=== PATIENT | female | born 2000 | race Caucasian/White ===

== ENCOUNTER 2022-10-10 08:02 | Outpatient (CLI) | payer OTHER, SELFPAY ==
--- NOTE | ~2022-10-10 | US_ITS ---
US right upper quadrant DATE: 10/10/2022 10:48 INDICATION: Epigastric abdominal pain for 2 months. TECHNIQUE: Real-time imaging and Doppler analysis of liver, pancreas, gallbladder COMPARISON: None FINDINGS: No hepatic or pancreatic space-occupying mass lesion. Normal hepatopedal portal venous flow direction. Small 3 mm gallbladder polyp is demonstrated. Mild sludge in the dependent aspect of the gallbladder. No gallbladder wall thickening or pericholecystic fluid. Negative sonographic Hernandez's sign. The common bile duct measures 2.5 mm, normal. IMPRESSION: Small gallbladder polyp and small amount of sludge in the gallbladder; negative sonograph ic Hernandez's sign Reviewed, dictated and finalized at [facility]. Reviewed, dictated and finalized at [facility]. [facility] [employer] IMPRESSION: Small gallbladder polyp and small amount of sludge in the gallbladd er; negative sonographic Hernandez's sign
== END 2022-10-10 08:03 | disposition home or self-care (01) ==
PROVIDERS: PCP Family Medicine; Visit Provider Family Medicine
DX: R10.13 Epigastric pain (principal); R85.0 Abnormal level of enzymes in specimens from digestive organs and abdominal cavity; K82.4 Cholesterolosis of gallbladder
CPT/HCPCS: 76705

== ENCOUNTER 2023-05-10 16:45 | Outpatient (CLI) | payer OTHER, SELFPAY ==
--- NOTE | ~2023-05-10 | US_ITS ---
US right upper quadrant INDICATION: Right upper quadrant pain PROCEDURE: Realtime right upper abdominal ultrasound. COMPARISON: 10/10/2022 FINDINGS: The pancreas is normal without focal mass or pancreatic ductal dilation. Liver echotexture is normal without focal mass or intrahepatic biliary dilatation. There is normal directional flow i n the portal vein. There is a 3 mm gallbladder polyp. No stones, gallbladder wall thickening or pericholecystic fluid. Common bile duct measures 3 mm. No sonographic Hernandez's sign. IMPRESSION: 1: Gallbladder polyp measuring 3 mm. Reviewed, dictated and finalized at [facility].
== END 2023-05-10 16:46 | disposition home or self-care (01) ==
LOC: ANHIMG 16:49
PROVIDERS: PCP Family Medicine
DX: R10.11 Right upper quadrant pain (principal); K82.4 Cholesterolosis of gallbladder
CPT/HCPCS: 76705

== ENCOUNTER 2023-08-29 17:38 | Emergency (ER) | payer OTHER, SELFPAY ==
--- NOTE | ~2023-08-29 | CT_ITS ---
EXAMINATION: CT abdomen pelvis w con DATE: 08/29/2023 19:15 INDICATION: Epigastric abdominal pain. TECHNIQUE: Computed tomography (CT) of the abdomen and pelvis was performed with 100 mL Omnipaque 350 intravenous contrast. Automated exposure control and iterative reconstruction technique were employe d. The dose-length product was 883.73 mGy-cm. COMPARISON: Abdomen ultrasound 05/10/2023 FINDINGS: The visualized portions of the lung bases are clear without pneumonia or pleural effusion. The heart size is normal. No pericardial effusion. The liver, gallbladder, spleen, pancreas, adrenal glands, and kidneys are normal. There are no dilated loops of bowel. The appendix is normal. There ar e no pathologically enlarged lymph nodes. There is no free intraperitoneal fluid. There is mild lumba r spondylosis. IMPRESSION: 1. No etiology for the patient's symptoms. Reviewed, dictated and finalized at [facility].
[2023-08-29 17:41] VITALS: BP 149/85; PULSE 73; RESP 15; TEMP 36.6; O2SAT 100
[2023-08-29 18:07] LABS: Basophils Absolute Auto 0.1 K/mm3 (0.0-0.1); Basophils Percent Auto 0.7 % (0.2-1.2); Eosinophils Absolute Auto 0.1 K/mm3 (0-0.3); Eosinophils Percent Auto 1.4 % (0-4.4); Hematocrit 39.8 % (37.0-47.0); Immature Granulocyte Absolute 0.02 K/mm3 (0.00-0.031); Immature Granulocyte Percent A 0.2 % (0-0.5); Lymphocytes Absolute Auto 3.07 K/mm3 (0.9-3.2); Lymphocytes Percent Auto 36.9 % (18.3-44.2); Mean Corpuscular HGB Conc 32.7 g/dl (32-36); Mean Corpuscular Hemoglobin 27.4 pg (26-34); Mean Corpuscular Volume 83.8 fl (80-100); Mean Platelet Volume 10.3 fl (7.4-10.4); Monocytes Absolute Auto 0.6 K/mm3 (0.1-0.6); Neutrophils Absolute Auto 4.5 K/mm3 (1.3-6.7); Neutrophils Percent Auto 53.8 % (45.5-73.1); Platelet Count Result 298 k/mm3 (150-375); Red Blood Count 4.75 M/mm3 (4.2-5.4); Red Cell Distribution Width 13.6 % (11.5-14.5); White Blood Count 8.3 K/mm3 (4.5-10.0)
[2023-08-29 18:17] LABS: Alanine Aminotransferase 18 U/L (6-35); Albumin Level 4.6 g/dL (3.5-5.1); Alkaline Phosphatase 92 U/L (38-126); Anion Gap 8 mmol/L (8-16); Aspartate Amino Transferase 29 U/L (14-36); Bilirubin,Total 0.4 mg/dL (0.2-1.3); Blood Urea Nitrogen 17 mg/dL (7-17); Calcium 8.7 mg/dL (8.4-10.2); Carbon Dioxide 24 mmol/L (22-30); Chloride 105 mmol/L (98-107); Estimated CRCL calculation 114 ml/min; Estimated Glomerular Filt Rate > 60; Glucose 95 mg/dL (65-110); Lipase 247 U/L (23-300); Potassium 3.6 mmol/L (3.4-5.0); Sodium 137 mmol/L (137-145)
[2023-08-29 18:18] LABS: Lactic Acid Reflex 0.9 mmol/L (0.7-2.0)
[2023-08-29 18:26] LABS: Appearance Urine Clear (Clear); Bilirubin Urine Negative (Negative); Blood Urine Negative (Negative); Color Urine Yellow (Yellow); Glucose Urine UA Negative (Negative); Ketones Urine Negative (Negative); Leukocyte Esterase Ur Negative LEU/UL (Negative); Nitrate Urine Negative (Negative); Protein Urine Negative (Negative); Urobilinogen Urine 0.2 mg/dL (<2.0)
[2023-08-29 18:29] LABS: Add Urine Microscopic? NO; Specific Grav Ur 1.043 (1.001-1.035)
--- NOTE | 2023-08-29 18:54 | ED.ABDPAIN ---
HPI - Abdominal Pain General Chief Complaint: Abdominal Pain Stated Complaint: abd pain Time Seen by Provider: 08/29/23 18:07 Source: patient Mode of arrival: ambulatory Limitations: no limitations History of Present Illness HPI narrative: This is a 22-year-old female that presents to the emergency department for epigastric pain ongoing over the last 3 days. Reports the pain is dull and sometimes burning. Today it has been somewhat intermittent. Reports history of a gallbladder polyp which she has surveillanced with imaging. She took [id number] medications with little relief. Reports nausea. Denies fevers, vomiting or diarrhea. Related Data Home Medications Medication Instructions Recorded Confirmed No Home Medications 08/29/23 08/29/23 Allergies Allergy/AdvReac Type Severity Reaction Status Date / Time No Known Allergies Allergy Verified 08/29/23 18:18 Review of Systems Review of Systems: CONSTITUTIONAL: Denies fever GASTROINTESTINAL: Reports abdominal pain, nausea. Denies vomiting, or diarrhea. All systems reviewed & are unremarkable except as noted in HPI and below PMFSH Past Medical History Medical History (Updated 08/29/23 @ 20:25 by Emi Raphael PA-C) No active medical problems Social History Social History (Updated 08/29/23 @ 18:57 by Emi Raphael PA-C) Substance use: never Exam Narrative: GENERAL: Well-appearing, well-nourished, and in no acute distress. HEAD: Normocephalic, atraumatic. EYES: EOMI. CHEST: Clear to auscultation. No respiratory distress. No wheezes rales or rhonchi HEART: Regular rate and rhythm. No murmur heard. Normal peripheral pulses. ABDOMEN: Soft, nontender, nondistended, normal active bowel sounds. EXTREMITIES: Normal range of motion. No edema. SKIN: Warm, dry, no rash. NEURO: No focal deficits. Alert and oriented x3. PSYCH: Normal mood and affect Course Course Emergency Course: Patient and family updated on workup and agree with plan of care Vital Signs Vital signs: Vital Signs Temperature 97.8 F 08/29/23 17:41 Pulse Rate 73 08/29/23 17:41 Respiratory Rate 15 08/29/23 17:41 Blood Pressure 149/85 H 08/29/23 17:41 Pulse Oximetry 100 08/29/23 17:41 Oxygen Delivery Room Air 08/29/23 17:41 Temperature 97.8 F 08/29/23 17:41 Pulse Rate 79 08/29/23 19:26 Respiratory Rate 18 08/29/23 19:26 Blood Pressure 128/87 08/29/23 19:26 Pulse Oximetry 100 08/29/23 19:26 Oxygen Delivery Room Air 08/29/23 17:41 MDM - Abdominal Pain MDM Narrative Medical decision making narrative: Patient presents to the emergency department for epigastric pain ongoing over the last couple of days. She is afebrile and nontoxic-appearing. Her vitals are stable. CBC without leukocytosis. Metabolic panel and lipase without concerning findings. UA without evidence of infection. Bedside test is negative. CT scan of the abdomen and pelvis is without concerning findings. Patient and family updated on work-up. Instructed to trial Pepcid to see if this helps. Patient in agreement with plan. She is to follow-up with primary provider. She was given warnings to return to the ER Differential Diagnosis Differential diagnosis: Likely abdominal pain, gastroenteritis, pancreatitis and other (biliary colic) Lab Data Attestation: I reviewed the patient's lab results. 08/29/23 18:00 08/29/23 18:00 Labs: Lab Results 08/29/23 08/29/23 Range/Units 18:00 18:15 WBC 8.3 (4.5-10.0) K/mm3 RBC 4.75 (4.2-5.4) M/mm3 Hgb 13.0 (12.0-15.0) g/dL Hct 39.8 (37.0-47.0) % MCV 83.8 (80-100) fl MCH 27.4 (26-34) pg MCHC 32.7 (32-36) g/dl RDW 13.6 (11.5-14.5) % Plt Count 298 (150-375) k/mm3 MPV 10.3 (7.4-10.4) fl Immature Gran % (Auto) 0.2 (0-0.5) % Neut % (Auto) 53.8 (45.5-73.1) % Lymph % (Auto) 36.9 (18.3-44.2) % Sunflower % (Auto) 7.0 (2.6-8.5) %
[2023-08-29] MEDS: SODIUM CHLORIDE 0.9% IV 500 ML 999 ML IV CONT (19:03)
[2023-08-29] MEDS: PANTOPRAZOLE SODIUM IV 40 MG VIAL IV PUSH (19:04)
[2023-08-29 19:26] VITALS: BP 128/87; PULSE 79; RESP 18; O2SAT 100
[2023-08-29 20:37] VITALS: BP 115/79; PULSE 67; O2SAT 100
== END 2023-08-29 20:35 | disposition home or self-care (01) ==
PROVIDERS: Emergency Medicine; Emergency Provider Physician Assistant; PCP Family Medicine
DX: R10.13 Epigastric pain (principal)
CPT/HCPCS: 36415; 74177; 80053; 81003; 81025; 83605; 83690; 85025; 96361; 96374; 99284; C9113; J7040; Q9967

== ENCOUNTER 2025-01-03 07:20 | Outpatient (CLI) | payer OTHER, SELFPAY ==
--- NOTE | ~2025-01-03 | US_ITS ---
EXAMINATION: US right upper quadrant DATE: 01/03/2025 08:20 INDICATION: Gallbladder polyp TECHNIQUE: Multiple grayscale and Doppler ultrasound images of the abdomen were obtained. COMPARISON: 08/29/2023 and 05/10/2023 FINDINGS: The pancreatic head and body are normal in appearance. The pancreatic tail is not visualized. The vi sualized proximal to mid inferior vena cava is normal. Liver has normal echogenicity and contour, wit h a smooth surface. No liver lesion identified. No intrahepatic biliary duct dilation suspected. Port al venous flow was seen in the hepatopetal, normal direction and has normal Doppler waveform. There i s a 3 mm echogenic focus along the posterior wall of the gallbladder however this now appears located closer to the neck rather than in the midportion of the gallbladder as on the prior study which favo rs a multiple all of sludge as opposed to a fixed gallbladder polyp. The gallbladder is otherwise nor mal in appearance. There is no shadowing cholelithiasis. The common bile duct measures 3-4 Sonograph ic Hernandez sign was reported as negative by the red hat engineer. mm, which is normal. /Portion of the righ t kidney demonstrates normal contour and echogenicity with no hydronephrosis. IMPRESSION: 1. 3 mm echogenic focus in the gallbladder which appears to have changed in position since the prior study which would favor a mobile ball of sludge over a fixed polyp. Reviewed, dictated and finalized at location B. THETIC ASSISTANT IMPRESSION: 1. 3 mm echogenic focus in the gallbladder which appears to have changed in pos ition since the prior study which would favor a mobile ball of sludge over a fi xed polyp.
--- OUTSIDE RECORDS SUMMARY | 2025-01-03 07:25 | XMS_ITS | Data Portability ---
Author Organization Jamey BUNN Address [address] [facility] [place] [address] Assessment Encounter Date Assessment Date Assessment LastModified by Organization Details LastModified Time 11/03/2021 11/03/2021 considering covid vaccine--advis ed to get PFIZER in Dec ( 3 months post covid) Not available 11/03/2021 15:04:55 12/02/2022 12/02/2022 asked for surgeon's note from last week-- med records to get for my review Not available 12/02/2022 13:19:15 Plan of Treatment Reminders Order Date Submit Date Provider Last Modified By Organization Details Last Modified Time Details Appointments None recorded. Lab celiac disease comprehens beronica panel, serum 2021 [facility], [address] [place] [address], [address], [place], [address], 16:12:31 CBC w/ auto diff 2021 [facility], [address] [place] [address], [address], [place], [address], 16:12:32 CMP, serum or plasma 2021 [facility], [address] [place] [address], [address], [place], [address], 16:12:32 amylase + lipase, serum 2021 [facility], [address] [facility] [address], [address], [place], [address], 2 16:12:33 amylase + lipase, serum 2022 023 [facility], [address] [facility] [address], [address], [place], [address], 3 08:19:19 H pylori urea breath test, co2 infrared 2022 023 [facility], [address] [facility] [address], [address], [place], [address], 3 14:58:09 influenza virus A + B + SARS-CoV-2 (COVID19) Ag panel, rapid IA, upper respirator y specimen 2023 024 In-Office Order, Internal Use Only DO Not Attach Compendium DO Not Attach Compendium, Do Not Delete/merge, [id number] 14:43:29 Referral dermatolog ist referral - Please contact patient to schedule an appointmen t, Thank you. 2021 022 [email or web address] Simental MD, [address] [facility] [address] , [place], [address], 3 15:08:06 Procedures None recorded. Surgeries None recorded. Imaging XR, ribs, unilateral [address] [facility], [address] [facility] [address], [place], [address], 1 15:02:33 XR, chest, 2 view [address] [facility], [address], [place], [address], 1 15:02:33 XR, cervical spine, 2 or 3 view [address] (Imaging), [address] [facility] [address], [place], [address], 1 15:02:33 Medication Orders Arnuity Ellipta 100 mcg/actuat ion powder for inhalation 2020 021 [facility] [place], [address], 3 14:18:19 omeprazole 40 mg capsule,de layed release 2021 022 [facility] [address], [address] [place], [address], 3 12:24:53 Arnuity Ellipta 100 mcg/actuat ion powder for inhalation 2021 023 [facility] [address] [place], [address], 3 14:22:25 amoxicilli n 875 mg-potassi um clavulanat e 125 mg tablet [address] [facility], [address] [facility] [address], [place], [address], 4 19:32:15 Patient TargetsNo targets recorded. 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 -Monitor your symptoms and seek medical attention for trouble breathing, persistent chest pain, confusion, or bluish lips or face. 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 Referring Physician: Sindi Leonard, Family Medicine, Encounter Date: 09/13/2022 Results Created Date Observation Date Name Description Value Unit Range Abnormal Flag Note LastModifiedBy Organization Detail LastModifiedTime 10/04/20 22 10/05/2022 MELI C DISEA SE PANEL endomysial antibody IgA NEGATI VE negati ve Not Available [facility] [address] [facility], [place], [address], 10/05/2022 16:12:31 10/04/20 22 10/05/2022 MELI C DISEA SE PANEL T-transgluta minase (ttg) IgA <2 U/mL 0-3 Negat beronica 0 - 3 Weak Posit beronica 4 - 10 Posit beronica >10 Tissu e Trans gluta marin e (tTG) has been ident ified as the endom ysial antig en. Studi es have demon str- ated that endom ysial IgA antib odies have over 99% speci ficit y for glute n sensi tive enter opath y. Not Available [facility] ([facility]) [address] [place], [address], 10/05/2022 16:12:31 10/04/20 22 10/05/2022 MELI C DISEA SE PANEL immunoglobul in A, qn, serum 216 mg/dL 87-352 Not Available [facility] [address] [place], [address], 10/05/2022 16:12:31 10/04/20 22 10/05/2022 COMP. METAB OLIC PANEL (14) glucose 108 mg/dL 70-99 above high normal Not Available [facility]) [address] [place], [address], 10/05/2022 16:12:32 10/04/20 22 10/05/2022 COMP. METAB OLIC PANEL (14) BUN 12 mg/dL 6-20 Not Available [facility] [address] [place], [address], 10/05/2022 16:12:32 10/04/20 22 10/05/2022 COMP. METAB OLIC PANEL (14) creatinine 0.84 mg/dL 0.57-1 .00 Not Available [facility]) [address] [facility] [place], [address], 10/05/2022 16:12:32 10/04/20 22 10/05/2022 COMP. METAB OLIC PANEL (14) eGFR 101 mL/mi n/1.7 3 >59 Not Available [facility] [address] [place], [address], 10/05/2022 16:12:32 10/04/20 22 10/05/2022 COMP. METAB OLIC PANEL (14) BUN/creatini ne ratio 14 9-23 Not Available [facility] [address] [place], [address], 10/05/2022 16:12:32 10/04/20 22 10/05/2022 COMP. METAB OLIC PANEL (14) sodium 140 mmol/ L 134-14 4 Not Available [facility] [address] [place], [address], 10/05/2022 16:12:32 10/04/20 22 10/05/2022 COMP. METAB OLIC PANEL (14) potassium 4.6 mmol/ L 3.5-5. 2 Not Available [facility] [address] [place], [address], 10/05/2022 16:12:32 10/04/20 22 10/05/2022 COMP. METAB OLIC PANEL (14) chloride 102 mmol/ L 96-106 Not Available [facility] [address] [facility] [place], [address], 10/05/2022 16:12:32 10/04/20 22 10/05/2022 COMP. METAB OLIC PANEL (14) carbon dioxide, total 22 mmol/ L 20-29 Not Available [facility] [address] [facility], [place], [address], 10/05/2022 16:12:32 10/04/20 22 10/05/2022 COMP. METAB OLIC PANEL (14) calcium 9.4 mg/dL 8.7-10 .2 Not Available [facility] [address] [facility], [place], [address], 10/05/2022 16:12:32 10/04/20 22 10/05/2022 COMP. METAB OLIC PANEL (14) protein, total 7.7 g/dL 6.0-8. 5 Not Available [facility] [address] [facility] [place], [address], 10/05/2022 16:12:32 10/04/20 22 10/05/2022 COMP. METAB OLIC PANEL (14) albumin 5.0 g/dL 3.9-5. 0 Not Available [facility] [address] [facility] [place], [address], 10/05/2022 16:12:32 10/04/20 22 10/05/2022 COMP. METAB OLIC PANEL (14) globulin, total 2.7 g/dL 1.5-4. 5 Not Available [facility] [address] [facility] [place], [address], 10/05/2022 16:12:32 10/04/20 22 10/05/2022 COMP. METAB OLIC PANEL (14) A/G ratio 1.9 1.2-2. 2 Not Available [facility]) [address] [facility], [place], [address], 10/05/2022 16:12:32 10/04/20 22 10/05/2022 COMP. METAB OLIC PANEL (14) bilirubin, total <0.2 mg/dL 0.0-1. 2 Not Available [facility]) [address] [facility], [place], [address], 10/05/2022 16:12:32 10/04/20 22 10/05/2022 COMP. METAB OLIC PANEL (14) alkaline phosphatase 87 IU/L 44-121 Not Available [facility] [address] [facility], [place], [address], 10/05/2022 16:12:32 10/04/20 22 10/05/2022 COMP. METAB OLIC PANEL (14) AST (SGOT) 18 IU/L 0-40 Not Available [facility]) [address] [facility], [place], [address], 10/05/2022 16:12:32 10/04/20 22 10/05/2022 COMP. METAB OLIC PANEL (14) ALT (SGPT) 18 IU/L 0-32 Not Available [facility] [address] [facility], [place], [address], 10/05/2022 16:12:32 10/04/20 22 10/05/2022 CBC WITH DIFFE RENTI AL/PL ATELE T WBC 6.3 x10e3 /uL 3.4-10 .8 Not Available [facility]) [address] [facility], [place], [address], 10/05/2022 16:12:32 10/04/20 22 10/05/2022 CBC WITH DIFFE RENTI AL/PL ATELE T RBC 5.22 x10e6 /uL 3.77-5 .28 Not Available [facility]) [address] [facility], [place], [address], 10/05/2022 16:12:32 10/04/20 22 10/05/2022 CBC WITH DIFFE RENTI AL/PL ATELE T hemoglobin 14.0 g/dL 11.1-1 5.9 Not Available [facility]) [address] [facility], [place], [address], 10/05/2022 16:12:32 10/04/20 22 10/05/2022 CBC WITH DIFFE RENTI AL/PL ATELE T hematocrit 43.3 % 34.0-4 6.6 Not Available [facility]) [address] [facility], [place], [address], 10/05/2022 16:12:32 10/04/20 22 10/05/2022 CBC WITH DIFFE RENTI AL/PL ATELE T MCV 83 fL 79-97 Not Available [facility]) [address] [facility], [place], [address], 10/05/2022 16:12:32 10/04/20 22 10/05/2022 CBC WITH DIFFE RENTI AL/PL ATELE T MCH 26.8 pg 26.6-3 3.0 Not Available [facility]) [address] [facility], [place], [address], 10/05/2022 16:12:32 10/04/20 22 10/05/2022 CBC WITH DIFFE RENTI AL/PL ATELE T MCHC 32.3 g/dL 31.5-3 5.7 Not Available [facility]) [address] [facility], [place], [address], 10/05/2022 16:12:32 10/04/20 22 10/05/2022 CBC WITH DIFFE RENTI AL/PL ATELE T RDW 13.9 % 11.7-1 5.4 Not Available [facility]) [address] [facility], [place], [address], 10/05/2022 16:12:32 10/04/20 22 10/05/2022 CBC WITH DIFFE RENTI AL/PL ATELE T platelets 376 x10e3 /uL 150-45 0 Not Available [facility]) [address] [facility], [place], [address], 10/05/2022 16:12:32 10/04/20 22 10/05/2022 CBC WITH DIFFE RENTI AL/PL ATELE T neutrophils 61 % notest ab. Not Available [facility]) [address] [facility], [place], [address], 10/05/2022 16:12:32 10/04/20 22 10/05/2022 CBC WITH DIFFE RENTI AL/PL ATELE T lymphs 30 % notest ab. Not Available [facility]) [address] [facility], [place], [address], 10/05/2022 16:12:32 10/04/20 22 10/05/2022 CBC WITH DIFFE RENTI AL/PL ATELE T monocytes 6 % notest ab. Not Available [facility]) [address] [facility], [place], [address], 10/05/2022 16:12:32 10/04/20 22 10/05/2022 CBC WITH DIFFE RENTI AL/PL ATELE T eos 2 % notest ab. Not Available [facility] [address] [facility], [place], [address], 10/05/2022 16:12:32 10/04/20 22 10/05/2022 CBC WITH DIFFE RENTI AL/PL ATELE T basos 1 % notest ab. Not Available [facility]) [address] [facility], [place], [address], 10/05/2022 16:12:32 10/04/20 22 10/05/2022 CBC WITH DIFFE RENTI AL/PL ATELE T neutrophils (absolute) 3.9 x10e3 /uL 1.4-7. 0 Not Available [facility] [address] [facility], [place], [address], 10/05/2022 16:12:32 10/04/20 22 10/05/2022 CBC WITH DIFFE RENTI AL/PL ATELE T lymphs (absolute) 1.9 x10e3 /uL 0.7-3. 1 Not Available [facility] [address] [place], [address], 10/05/2022 16:12:32 10/04/20 22 10/05/2022 CBC WITH DIFFE RENTI AL/PL ATELE T monocytes(ab solute) 0.4 x10e3 /uL 0.1-0. 9 Not Available [facility] [address] [place], [address], 10/05/2022 16:12:32 10/04/20 22 10/05/2022 CBC WITH DIFFE RENTI AL/PL ATELE T eos (absolute) 0.1 x10e3 /uL 0.0-0. 4 Not Available [facility] [address] [place], [address], 10/05/2022 16:12:32 10/04/20 22 10/05/2022 CBC WITH DIFFE RENTI AL/PL ATELE T baso (absolute) 0.1 x10e3 /uL 0.0-0. 2 Not Available [facility] [address] [place], [address], 10/05/2022 16:12:32 10/04/20 22 10/05/2022 CBC WITH DIFFE RENTI AL/PL ATELE T immature granulocytes 0 % notest ab. Not Available [facility]) [address] [place], [address], 10/05/2022 16:12:32 10/04/20 22 10/05/2022 CBC WITH DIFFE RENTI AL/PL ATELE T immature grans (abs) 0.0 x10e3 /uL 0.0-0. 1 Not Available [facility] [address] [facility], [place], [address], 10/05/2022 16:12:32 10/04/20 22 10/05/2022 MARTHA+L IPASE amylase 122 U/L 31-110 above high normal Not Available [facility] [address] [place], [address], 10/05/2022 16:12:33 10/04/20 22 10/05/2022 MARTHA+L IPASE lipase 80 U/L 14-72 above high normal Not Available [facility] [address] [place], [address], 10/05/2022 16:12:33 10/07/20 22 10/08/2022 MARHTA+L IPASE amylase 114 U/L 31-110 above high normal Not Available [facility] [address] [facility], [place], [address], 10/08/2022 08:19:38 10/07/20 22 10/08/2022 MARTHA+L IPASE lipase 79 U/L 14-72 above high normal Not Available [facility] [address] [place], [address], 10/08/2022 08:19:38 10/07/20 22 10/08/2022 LIPID PANEL cholesterol, total 174 mg/dL 100-19 9 Not Available [facility] [address] [place], [address], 10/08/2022 08:19:38 10/07/20 22 10/08/2022 LIPID PANEL triglyceride s 52 mg/dL 0-149 Not Available [facility] [address] [place], [address], 10/08/2022 08:19:38 10/07/20 22 10/08/2022 LIPID PANEL HDL cholesterol 51 mg/dL >39 Not Available [facility] [address] [place], [address], 10/08/2022 08:19:38 10/07/20 22 10/08/2022 LIPID PANEL VLDL cholesterol sowmya 10 mg/dL 5-40 Not Available [facility] [address] [place], [address], 10/08/2022 08:19:38 10/07/20 22 10/08/2022 LIPID PANEL LDL chol calc ([facility]) 113 mg/dL 0-99 above high normal Not Available [facility] [address] [place], [address], 10/08/2022 08:19:38 12/02/19 23 12/03/2022 MARTHA+L IPASE amylase 106 U/L 31-110 Not Available [facility] [address] [place], [address], 12/03/2022 08:19:19 12/02/19 23 12/03/2022 MARTHA+L IPASE lipase 81 U/L 14-72 above high normal Not Available [facility] [address] [place], [address], 12/03/2022 08:19:19 01/23/20 24 01/23/2024 influ sumanth virus A + B + SARS- CoV-2 (COVI D19) Ag panel , rapid IA, upper respi rator y speci men Flu A negati ve Not Available In-Office Order Internal Use Only DO Not Attach Compendium DO Not Attach Compendium, Do Not Delete/merge, [id number] 01/23/2024 14:40:05 01/23/20 24 01/23/2024 influ sumanth virus A + B + SARS- CoV-2 (COVI D19) Ag panel , rapid IA, upper respi rator y speci men Flu B negati ve Not Available In-Office Order Internal Use Only DO Not Attach Compendium DO Not Attach Compendium, Do Not Delete/merge, [id number] 01/23/2024 14:40:05 01/23/20 24 01/23/2024 influ sumanth virus A + B + SARS- CoV-2 (COVI D19) Ag panel , rapid IA, upper respi rator y speci men Rapid SARS CoV 2 Ag, QL IA, respiratory specimen negati ve Not Available In-Office Order Internal Use Only DO Not Attach Compendium DO Not Attach Compendium, Do Not Delete/merge, [id number] 01/23/2024 14:40:05 10/10/20 22 10/10/2022 US, abdom en No observ ation record ed. [address], [place], [address], 12/02/2022 13:02:27 05/11/20 23 05/10/2023 US, abdom en No observ ation record ed. [address], [place], [address], 05/12/2023 08:17:25 08/30/20 23 08/29/2023 CT, abdom en + pelvi s, w/ contr ast No observ ation record ed. [address], [place], [address], 08/31/2023 09:03:01 Result Notes None recorded. Problems Name Problem SNOMED Code Status Onset Date Resolution Date Notes Provider Name and Address Organization Details Recorded Time Mild persistent asthma 754020392 Active 2020 Sindi Leonard MD Attn: Cheryl roman,[address] [facility], [place], [address], [place] [facility] 3 13:19:33 Melanocytic nevus 553056350 Active 2021 Sindi Leonard MD Attn: Josémoncho owens,[address] [facility], [place], [address], [place] [facility] 3 13:19:30 Biliary sludge 37842934 Active 2022 Sindi Leonard MD Attn: Cheryl roman,[address] [facility], [place], [address], [place] [facility] 3 13:19:17 Family history of Gallbladder disease 011831919 Active 2022 Sindi Leonard MD Attn: Cheryl roman,[address] [facility], [place], [address], [place] [facility] 3 13:19:24 Polyp of gallbladder 427228408 Active 2022 Sindi Leonard MD Attn: Cheryl roman,[address] [facility], [place], [address], [place] [facility] 3 13:19:37 Abdominal pain 98605857 Active 2022 Sindi Leonard MD Attn: Cheryl roman,[address] [facility], [place], [address], [place] [facility] 3 18:33:18 Obesity 135370819 Active 2022 Sindi Leonard MD Attn: Cheryl roman,[address] [facility], [place], [address], [place] [facility] 3 18:33:34 Acute cervical adenitis 735454302 Active 2023 Sindi Leonard MD Attn: Cheryl owens,[address] [facility], [place], [address], [place] [facility] 4 19:33:26 Acute upper respiratory infection 19295991 Active 2023 Sindi Leonard MD Attn: Cheryl owens,[address] [facility], [place], [address], [place] [facility] 4 19:33:28 Problem Notes None recorded. Procedures Surgical History None recorded. Imaging Results Imaging Date Name Status LastModified by Carlos gordon Details LastModified Time 10/10/2022 US, abdomen completed [address] [facility] [address], [place], [address], 12/02/2022 13:02:27 05/10/2023 US, abdomen completed [address] [facility] [address], [place], [address], 05/12/2023 08:17:25 08/29/2023 CT, abdomen + pelvis, w/ contrast completed [address], [place], [address], 08/31/2023 09:03:01 Procedure Notes None recorded. Medical Equipment None Reported. Allergies No known drug allergies Medications Name Sig Start Date Stop Date Status Note LastModified by Organization Details LastModified Time ketoconazol e 2 % shampoo WASH SCALP WITH SHAMPOO THREE TIMES WEEKLY FOR 30 DAYS 09/01 completed Not Available Not Available Not Available phenazopyri dine 200 mg tablet TAKE 1 TABLET BY MOUTH THREE TIMES DAILY 11/03 completed Not Available Not Available Not Available sulfamethox azole 800 mg-trimetho prim 160 mg tablet TAKE 1 TABLET BY MOUTH EVERY 12 HOURS FOR 3 DAYS 11/03 completed Not Available Not Available Not Available omeprazole 40 mg capsule,del ayed release Take 1 capsule every day by oral route for 56 days. 12/02 completed Not Available Not Available Not Available benzonatate 100 mg capsule Take 1 capsule every 6 hours by oral route as needed. 11/03 completed Not Available Not Available Not Available lidocaine HCl 2 % mucosal solution 01/23 completed Not Available Not Available Not Available hydrocortis one 2.5 % topical cream APPLY CREAM TO FACE DAILY FOR 14 DAYS 01/23 completed Not Available Not Available Not Available methylpredn isolone 4 mg tablets in a dose pack 01/23 completed Not Available Not Available Not Available albuterol sulfate HFA 90 mcg/actuati on aerosol inhaler Inhale 2 puffs every 4 hours by inhalatio n route as needed. 01/23 completed Not Available Not Available Not Available cefdinir 300 mg capsule TAKE 1 CAPSULE BY MOUTH EVERY 12 HOURS FOR 7 DAYS 12/08 /2021 completed Not Available Not Available Not Available naproxen 500 mg tablet Take 1 tablet twice a day by oral route as needed. 11/03 completed Not Available Not Available Not Available amoxicillin 875 mg-potassiu m clavulanate 125 mg tablet Take 1 tablet every 12 hours by oral route for 7 days. active Not Available Not Available No t Available Asmanex HFA 100 mcg/actuati on aerosol inhaler INHALE 2 PUFFS BY MOUTH TWICE DAILY 11/03 completed Not Available Not Available Not Available Arnuity Ellipta 100 mcg/actuati on powder for inhalation one puff inhaled daily. rinse mouth after use 09/01 completed Not Available Not Available Not Available Vitals Date Recorded Body weight Body temperature Oxygen saturation Oxygen saturation in Arterial blood by Pulse oximetry Systolic blood pressure Diastolic blood pressure Provider Name and Address Organization Details Last Updated DateTime 1 24788.1 3 g 98.2 [degF] 99 % 99 % 110 mm[Hg] 82 mm[Hg] Eileen Jaramillo MA [facility] 1 14:19:14 Date Recorded Respiratory rate Heart rate Provider N marcos and Address Organization Details Last Updated DateTime 11/03/2021 14 /min 74 /min Sindi Leonard MD Attn: Accounting,[address] [place], [address], [facility] 11/03/2021 14:49:05 Date Recorded Body height Body mass index (BMI) Body weight Body temperature Oxygen saturation Oxygen saturation in Arterial blood by Pulse oximetry Heart rate Systolic blood pressure Diastolic blood pressure Provider Name and Address Organization Details Last Updated DateTime 2 172.72 cm 29.8 kg/m2 45344.4 5 g 98 [degF] 98 % 98 % 77 /min 112 mm[Hg] 80 mm[Hg] Eileen Jaramillo MA [facility] 2 09:40:46 Date Recorded Body height Body mass index (BMI) Body weight Body temperature Oxygen saturation Oxygen saturation in Arterial blood by Pulse oximetry Heart rate Systolic blood pressure Diastolic blood pressure Provider Name and Address Organization Details Last Updated DateTime 3 172.72 cm 30.3 kg/m2 85974.2 8 g 97.3 [degF] 98 % 98 % 89 /min 126 mm[Hg] 82 mm[Hg] Nikky Simon MA [facility] 3 12:24:33 Date Recorded Body height Body mass index (BMI) Body weight Body temperature Oxygen saturation Oxygen saturation in Arterial blood by Pulse oximetry Heart rate Systolic blood pressure Diastolic blood pressure Provider Name and Address Organization Details Last Updated DateTime 3 172.72 cm 32.1 kg/m2 09587.9 9 g 97.3 [degF] 99 % 99 % 82 /min 128 mm[Hg] 87 mm[Hg] Eileen Jaramillo MA [facility] 3 14:17:56 Date Recorded Body height Body mass index (BMI) Body weight Body temperature Oxygen saturation Oxygen saturation in Arterial blood by Pulse oximetry Heart rate Systolic blood pressure Diastolic blood pressure Provider Name and Address Organization Details Last Updated DateTime 4 172.72 cm 31.3 kg/m2 75151.0 3 g 97.5 [degF] 96 % 96 % 110 /min 140 mm[Hg] 89 mm[Hg] Yolis Mckinney MA [facility] 4 14:39:16 Social History Question Answer Notes LastModified by Organizat ion Details LastModified Time Tobacco Smoking Status [facility]/20/2019 09:43:09 Do You Have An Advance Directive? No Information not available 11/03/2021 What Is Your Level Of Alcohol Consumption? Occasional Information not available 11/03/2021 Are You Blind Or Do You Have Difficulty Seeing? No Information not available 11/03/2021 What Is Your Level Of Caffeine Consumption? Moderate Information not available 11/03/2021 Are You Currently Employed? No Information not available 09/01/2023 Are You Deaf Or Do You Have Serious Difficulty Hearing? No Information not available 11/03/2021 What Type Of Diet Are You Following? REGULAR Information not available 11/03/2021 What Was The Date Of Your Most Recent Tobacco Screening? 01/23/2024 [email or web address] Information not available 01/23/2024 What Is Your Relationship Status? Single Information not available 11/03/2021 Do You Use Your Seat Belt Or Car Seat Routinely? Yes Information not available 11/03/2021 How Much Tobacco Do You Smoke? No [email or web address] Information not available 10/23/2019 Do You Feel Stressed (tense, Restless, Nervous, Or Anxious, Or Unable To Sleep At Night)? [id number] Information not available 11/03/2021 Sex: Female Functional Status Question Answer Note LastModified by Organization D etails LastModified Time Are you able to care for yourself? Yes Information not available 11/03/2021 What is your exercise level? Moderate Information not available 11/03/2021 Mental Status None recorded. Family History Relationship Description Onset Age of this Age Resolved Age Notes LastModified by Organization Details LastModified Time Brother Asthma [email or web address] Not availab le 09/20/2019 09:42:44 Father Hypertensive disorder [email or web address] Not available 08/28 09:43:01 Mother Hypertensive disorder [email or web address] Not available 08/28 09:43:01 Mother Cholecystect quincy Not available 2022 13:07:09 Paternal Grandmother Malignant tumor of breast Not available 2022 13:05:29 Paternal Grandfather Diabetes mellitus Not available 2022 13:05:37 Paternal Grandfather Peripheral vascular disease Not available 2022 13:06:00 Paternal Grandfather Hypertensive disorder Not available 2022 13:06:09 Maternal Aunt Malignant tumor of breast great aunt Not available 12/02/2022 13:06:51 Maternal Grandmother Cholecystect quincy Not available 2022 13:07:09 Medical History No medical history recorded. Gynecological History Statement/Question Response Menses Monthly Y Date of LMP 11/22/2022 Obstetrics History GPAL:G 0 P 0 0 0 0 Immunizations Vaccine Type Date Status Note Provider Yimi ballard and Address Organization Details Recorded Time Tdap 2 completed GREGG [place], [place] - [facility] 10/23/2019 11:56:03 DTaP, unspecified formulation 5 completed Nadeen Castellanos [place], [place] [facility] 10/23/2019 11:56:32 DTaP, unspecified formulation 2 completed Nadeen Castellanos, [place] [facility] 10/23/2019 11:56:53 DTaP, unspecified formulation 1 completed Nadeen Cast[place] [facility] 10/23/2019 11:57:11 DTaP, unspecified formulation 1 completed Nadeen Castellanos[place] [facility] 10/23/2019 11:57:42 DTaP, unspecified formulation 1 completed [place]ade[place] [facility] 10/23/2019 11:57:52 HPV9 6 completed Sindi Leonard MD Attn: Accounting,[address] [place], [address], [place] [facility] 09/01/2023 14:40:28 HPV9 6 completed Sindi Leonard MD Attn: Accounting,[address] [facility], [place], [address], [place] [facility] 09/01/2023 14:40:28 HPV9 6 completed Sindi Leonard MD Attn: Accounting,[address] [place], [address], [place] [facility] 09/01/2023 14:40:28 Hib, unspecified formulation 1 completed Nadeen Cast[place] [facility] 10/23/2019 11:59:33 Hib, unspecified formulation 1 completed Nadeen Castell[place] [facility] 10/23/2019 11:59:43 Hib, unspecified formulation 3 completed Nadeen Castell[place] [facility] 10/23/2019 11:59:54 Hib, unspecified formulation 1 completed Nadeen Cast[place] [facility] 10/23/2019 12:00:28 Hep A, ped/adol, 2 dose 0 completed Nadeen Cast[place] [facility] 10/23/2019 12:00:59 Hep A, ped/adol, 2 dose 2 completed Nadeen Cast[place] [facility] 10/23/2019 12:01:09 Hep B, unspecified formulation 0 completed Nadeen Cast[place] [facility] 10/23/2019 12:01:55 Hep B, unspecified formulation 0 completed Nadeen [place] [facility] 10/23/2019 12:02:27 Hep B, unspecified formulation 1 completed Nadeen [place] [facility] 10/23/2019 12:02:38 Influenza, split virus, quadrivalent, preservative 3 completed Nadeen [place] [facility] 10/23/2019 12:11:02 Influenza, split virus, quadrivalent, preservative 5 completed Nadeen [place] [facility] 10/23/2019 12:11:17 Influenza, split virus, quadrivalent, preservative 6 completed Nadeen Cast[place] [facility] 10/23/2019 12:11:26 Influenza, injectable,quadriv alent, preservative free, pediatric 2 completed Nadeen Cast[place] [facility] 10/23/2019 12:12:36 Influenza, injectable,quadriv alent, preservative free, pediatric 3 completed Nadeen Cast[place] [facility] 10/23/2019 12:12:48 MMR 2 completed Nadeen Cast[place] [facility] 10/23/2019 12:13:37 MMR 5 completed Nadeen Cast[place] [facility] 10/23/2019 12:13:48 meningococcal MCV4P 8 completed Nadeen Cast[place] [facility] 10/23/2019 12:15:33 pneumococcal conjugate PCV 7 1 completed Nadeen Castell[place] [facility] 10/23/2019 12:21:23 pneumococcal conjugate PCV 7 1 completed Nadeen Castell[place] [facility] 10/23/2019 12:21:33 pneumococcal conjugate PCV 7 1 completed Nadeen Castell[place] [facility] 10/23/2019 12:21:42 pneumococcal conjugate PCV 7 1 completed Nadeen Castell[place] [facility] 10/23/2019 12:21:51 IPV 1 completed Nadeen Castell[place] [facility] 10/23/2019 12:22:29 IPV 1 completed Nadeen Castell[place] [facility] 10/23/2019 12:22:38 IPV 2 completed Nadeen Castell[place] [facility] 10/23/2019 12:22:47 IPV 5 completed Nadeen Castell[place] [facility] 10/23/2019 12:22:57 varicella 1 completed Nadeen Castell[place] [facility] 10/23/2019 12:23:17 varicella 0 completed Nadeen Castell[place] [facility] 10/23/2019 12:23:31 TST-PPD intradermal 1 completed Sindi Leonard MD Attn: Accounting,[address] [place], [address], [place] [facility] 09/01/2023 18:34:08 COVID-19, mRNA, LNP-S, PF, 30 mcg/0.3 mL dose, bernice-sucrose 2 completed Sindi Leonard MD Attn: Accounting,[address] [place], [address], [place] [facility] 09/01/2023 14:40:28 COVID-19, mRNA, LNP-S, PF, 30 mcg/0.3 mL dose, bernice-sucrose 2 completed Sindi Leonard MD Attn: Accounting,[address] [place], [address], [place] [facility] 09/01/2023 14:40:28 Tdap 3 completed Sindi Leonard MD Attn: Accounting,[address] [facility], [place], [address], [facility] 09/01/2023 18:34:08 Influenza, split virus, quadrivalent, PF 3 completed Sindi Leonard MD Attn: Accounting,[address] [place], [address], [facility] - [facility] 09/01/2023 18:34:08 Influenza, split virus, quadrivalent, PF 2 completed Sindi Leonard MD Attn: Accounting,[address] [facility], [place], [address], [facility] 09/01/2023 14:40:51 Past Encounters Encounter ID Performer Location Encounter Start Date Encounter Closed Date Diagnosis/Indication Diagnosis SNOMED-CT Code Diagnosis ICD10 Code Diagnosis Note [id number] MARIELA Wiggins [facility] [address] [facility] [address] [place] [address] 09/20/2019 09:38:07 09/20/2019 11:25:56 Dysuria 12838751 R30.9 Acute urin mandy tract infection 203893323 N39.0 Venereal d isease screening 805312080 Z11.3 Pigmented skin lesion 20 8119950 L81.9 Influenza vaccination declined 646435692 Z28.21 [id number] Sindi Leonard MD [facility] [address] [facility] [address] [place] [address] 07/24/2020 09:06:40 07/24/2020 11:44:29 Asthma 896670029 J45.909 Suspect patient may have asthma given hpi and family history.Wi ll need CXR and spirometry testing. Patient advised she may need covid testing prior to PFT.Albute rol prescribed to use for shortness of breath as needed. Patient will consult family members for guidance on technique. Also encouraged to use YouTube or call clinic if needing assistance .Plan to follow up in 4 weeks. Pigmented skin lesion 20 0377742 L81.9 Referred to dermatolog ist--Dr. Lu--in August 2019 for evaluation Patient advised to call clinic if she needs new referral. [id number] Sindi Leonard MD [facility] [address] [place] [address] 08/19/2020 15:13:50 08/19/2020 17:52:50 Reactive airway disease 7746242333 06 J45.909 start daily preventati ve inhaler and continue the rescue inhaler as prescribed . Follow up in one month after PFTs complete and to review response to the ASMANEX [id number] Sindi Leonard MD [facility] [address] [place] [address] 04/16/2021 09:54:02 04/20/2021 11:06:10 Dysuria 97012803 R30.9 [id number] Sindi Leonard MD [facility] [address] [place] [address] 11/03/2021 14:05:06 11/04/2021 11:34:11 Rib pain 276286963 R07.81 will see chiropract or for rib assessment and adjustment if the XRAYS are normal and no fracture Neck pain 15610287 M54.2 will check XRAY and see chiropract or for the neck pain Mild persi stent asthma 625048150 J45.30 routine refill sent to [facility] per patient request Otalgia 50568453 H92.01 exam is normal Dysplastic nevus of skin 082448901 D22.9 advised removal of mole given border irregulari ty noted-- size is 6 mm and uniform in brown color [id number] Sindi Leonard MD [facility] [address] [place] [address] 09/13/2022 09:22:56 09/14/2022 10:25:54 Mild persistent asthma 775371762 J45.30 routine refill sent to [facility] per patient request for her asthma control med Melanocytic nevus 211211 001 D22.9 Mole with abnormal irregular border - referral sent per patient request -- other warning signs related to moles were negative Indigestion 957897385 R1 0.13 Advise pt to stop use of NSAIDs to prevent occurrence of gastric ulcers. No alcohol. Start omeprazole for bloating and epigastric pain relief. Labs ordered to rule out celiac disease, anemia, and pancreatit is -- likely gastritis or gastric ulcer as cause of pain -- if not feeling better with treatment within 2-3 weeks-- will need to consider GI for endoscopy- - biopsy/ celiac/ h pylori/ulc er/ etc Influenza vaccination declined 759800426 Z28.21 offered/ advised and declined Pneumococc al vaccination declined 607661781 Z28.21 advised and declined Body mass index 25-29 - overweight 758693892 Z68.26 Recommend her to continue her exercise routine and avoid high caloric meals with low nutritiona l value. Eat 5-7 fruits and veggies per daycontinu e waling 1 hour per day [id number] Sindi Leonard MD [facility] [address] [place] [address] 12/02/2022 12:18:44 12/02/2022 15:40:14 Serum amylase above reference range 938227392 R74.8 will recheck Polyp of gallbladder 197 167496 K82.4 has seen gen surgeon and will monitor for recurrent complaint going forward-- advised LOW FAT DIET Family his tory of Gallbladder disease 971831096 Z83.79 has seen gen surgeon and will monitor for recurrent complaint going forward-- advised LOW FAT DIET Biliary sludge 23159757 K83.8 has seen gen surgeon and will monitor for recurrent complaint going forward-- advised LOW FAT DIET [id number] Sindi Leonard MD [facility] [address] [place] [address] 09/01/2023 14:10:21 09/04/2023 09:29:23 Abdominal pain 22904258 R10.9 pt ed-- cont H 2 blockerget H pylori testingFOD MAP informatio n shared and she will change diet for the next few weeks. If GI better-- no new RX-- if GI not better-- will consider med for IBS-- TCA or antispasmo ticstress reduction advised/ discussed [id number] Sindi Leonard MD [facility] [address] [place] [address] 01/23/2024 13:53:13 01/24/2024 09:53:09 Acute upper respiratory infection 94117074 J06.9 pt ed and rest at home-- no work note neededscre en for FLU A&B and COVID neg here and neg at urgent care -- strep screen done in urgent care and negative last evening also Acute cerv ical adenitis 242121406 L04.0 use OTC pain reliever / fever compliance lead as needed-- and start the MEDROL PACK ordered from urgent care yesterday- - appointmen t for follow up if not better Sore throat 263275816 J0 2.9 OK for the lidocaine to swish and spit and the medrol dose pack from urgent care last pm Health Concerns Section Related Observation LastModified by Organization Detai ls LastModified Time None Recorded Concern Status LastModified by Organization Details LastModified Time None Recorded Advance Directives Directive N: Payers Encounter Date Sequence Insurance Name Policy Number Policy Whiting Covered Member ID Whiting Member ID Guarantor Name 11/03/2021 1 [employer] [id number] Nixon Lynn [id number] Maia Lyon Leah 09/13/2022 1 [employer] [id number] Nixon Lynn [id number] Maia Lyon Leah 12/02/2022 1 [employer] [id number] Nixon Lynn [id number] Maia Lyon Leah 09/01/2023 1 [employer] [id number] Nixon Lynn [id number] Maia Lyon Leah 01/23/2024 1 [employer] [id number] Nixon Lynn [id number] Maia Paulinowski Notes Date Note Type Note Provider Name and Address Organization Details Recorded Time 11/03/2021 text/html Angina/Chest PainReported bypatient.Location:lef t chest; middle scapular Quality:squeezing;tigh tness;heaviness;aching Severity:moderate; pain level 5/10 Duration:lasts hours (1 hour) Onset/Timing:started 2-3weeks ago; occurs ; pt stated that it is not every day ,but a couple times more when she laying down Context:at rest Alleviating Factors:nothing gives relief Aggravating Factors:worse in a supine position Associated Symptoms:no dyspnea; no decrease in exercise capacity; no fatigue;chest discomfort;dizziness Sindi Leonard MD Attn: Accounting,[address] [place], [address], [facility] 11/03/2021 17:53:50 09/13/2022 text/html Abdominal PainRe ported bypatient.Location:LLQ ; LUQ; RLQ; RUQ Quality:bloating;cramp ing;aching;dull;fullne ss; pt said said that there is a lot of discomfort Severity:mild; diffuse discomfort Duration:intermittent Onset/Timing:worse; pt said that started about 2 months ago ,but got worse over the last 2 weeks Context:after eating and drinking alcohol Modifying Factors:nothing gives relief; eating (makes it worse; more gassy and bloated); no relief from gas relief medication Associated Symptoms:no fever; no chills; no blood in the urine; no heartburn; no shortness of breath;diarrhea; 1/day starting two weeks ago Other:denies possible ; sexually active; uses controlNotes:Denies worsening with menstrual cycle. Last menstrual cycle was 08/21. Gluten food often makes her bloated. Pt also reports having used ibuprofen and advil for her menstrual cramps and headaches very often. Report having a mole she wants a storm door maker referral for Sindi Leonard MD Attn: Accounting,[address] [place], [address], [facility] 09/13/2022 11:12:50 12/02/2022 text/html Abdominal PainRe ported bypatient.Location:LLQ ; LUQ; RLQ; RUQ; gone now Quality:bloating;cramp ing;aching;dull;fullne ss; gone now Severity:no pain; diffuse discomfort Duration:intermittent Onset/Timing:worse; pt said that started about 2 months ago ,but got worse over the last 2 weeks Context:after eating and drinking alcohol Modifying Factors:nothing gives relief; eating (makes it worse; more gassy and bloated); no relief from gas relief medication Associated Symptoms:no fever; no chills; no blood in the urine; no heartburn; no shortness of breath; 1/day starting two weeks ago Other:denies possible ; sexually active; uses controlNotes:LMP 11/22/22 Sindi Leonard MD Attn: Accounting,[address] [facility], [place], [address], [facility] 12/02/2022 13:20:07 09/01/2023 text/html Abdominal PainRe ported bypatient.Location:LUQ ; RUQ Quality:pain;bloating; cramping;aching;dull;b urning;fullness;tender Severity:mild (moderate) Duration:intermittent (with meds); constant (with out meds) Onset/Timing:better Modifying Factors:pepcid helpsNotes:went to see general surgeon and had repeat U/S in May and no change in U/S. Had an ER visit this past week with CT scan and labs-- reviewed and normal except concentrated urine. UCG was neg- LFTs OK-- WBC OK-- Lipase normalno constipation-- no relief of pain with BM or flatus or eructation she reports a flu shot and tetanus update last month Sindi Leonard MD Attn: Accounting,[address] [facility], [place], [address], [facility] 09/01/2023 18:34:18 01/23/2024 text/html COVID ScreeningReported bypatient.Onset/Durati on of fever:fever(2pm yesterday) Associated Symptoms:cough; no shortness of breath Context/Exposure:doesn t have covid or flu a or bNotes:went to urgent care last PM-- given MDP and lidocaine to swish and spitCOVID-19 Symptoms March 2020Reported bypatient.COVID-19 Signs and Symptomscough resolved; cough same; fever resolved; fever improving; shortness of breath resolved; chills resolved; chills same; repeated shaking with chills resolved; muscle pain resolved; muscle pain same; headache resolved; headache same; sore throat resolved; sore throat same; loss of taste or smell resolved; vomiting or diarrhea resolved; fatigue resolved; fatigue same; anorexia resolved Contacts and Exposurepossible sinus infection Quality:productive cough Severity:moderate; unchanged Duration:symptoms lasting 6 days Onset/Timing:date of symptoms onset: (present since last monday) Context:asthma Associated Symptoms:no sputum production; no vomiting; no diarrhea; no nausea; no change in mental status; no hypotension; no tachycardia;wheezing;f atigue;sweats;runny nose;body aches Prior Labs and Imagingnegative for rancho Leonard MD Attn: Accounting,[address] [place], [address], [facility] 01/23/2024 19:35:57 OBGyn Episode No OBEpisode recorded.
== END 2025-01-03 07:21 | disposition home or self-care (01) ==
PROVIDERS: PCP Family Medicine
DX: K82.4 Cholesterolosis of gallbladder (principal)
CPT/HCPCS: 76705